=== PATIENT | male | born 1990 | race Hispanic/Latino ===

== ENCOUNTER 2024-08-13 19:19 | Emergency (ER) | payer SELFPAY ==
[~2024-08-13] VITALS: Ht 182.9 cm; Wt 129.7 kg
[2024-08-13 19:19] VITALS: PULSE 85; RESP 18; TEMP 99.3
[2024-08-13] MEDS ORDERED: IOPAMIDOL 370 MG/ML 100 ML INFUS..BTL INJ ONE (20:33)
[2024-08-13] MEDS: KETOROLAC TROMETHAMINE 30 MG/ML VIAL IV STA (21:52)
[2024-08-13] MEDS ORDERED: DOXYCYCLINE HY100 MG PO (22:26)
[2024-08-13] MEDS: CEFTRIAXONE 500 MG VIAL IM ONE (22:48)
[2024-08-13 22:58] VITALS: BP 158/90; PULSE 71; RESP 18; TEMP 98.3; O2SAT 99
== END 2024-08-13 23:00 | disposition home or self-care (01) ==
LOC: FSED 20:08
DX: R50.9 Fever, unspecified (principal); N45.1 Epididymitis; R10.32 Left lower quadrant pain
CPT/HCPCS: 74177; 80048; 85025; 99284; J0696; J1885; Q9967